=== PATIENT | male | born 1955 | race Caucasian/White ===

== ENCOUNTER 2016-03-13 11:53 | Observation (INO) | payer OTHER ==
[2016-03-13] MEDS ORDERED: Midazolam* 1 MG/ML 10 ML VIAL (10 MG) ONE (13:47)
[2016-03-13] MEDS ORDERED: Meperidine SYRINGE* 50 MG/ML ONE (13:47)
[2016-03-13] MEDS ORDERED: ceFAZolin 1 GM in Dextrose (*) 1 GM/50 ML BAG IVPB ONE (15:00)
[2016-03-13] MEDS ORDERED: Ondansetron INJ* 2 MG/ML VIAL IV PRN (16:40)
[2016-03-13] MEDS: NS 0.9% 1000 ML* 1,000 ML IV SCH (16:59)
[2016-03-13] MEDS ORDERED: CMCS: Varenicline (NF) 1 MG TAB PO SCH (21:00)
[2016-03-13] MEDS: HYDROmorphone INJ* 2 MG/ML CARPUJECT SYRINGE IV PRN (22:26)
[2016-03-14] MEDS: NS 0.9% 1000 ML* 1,000 ML IV SCH (03:21)
[2016-03-14] MEDS: HYDROmorphone INJ* 2 MG/ML CARPUJECT SYRINGE IV PRN (05:14)
[2016-03-14 06:30] LABS: Hematocrit 36 % (42-52); Hemoglobin 12.1 g/dl (14.0-18.0); Mean Corpuscular HGB Conc 34 g/dl (31-36); Mean Corpuscular Hemoglobin 30 pg (27-31); Mean Corpuscular Volume 88 fL (80-94); Mean Platelet Volume 8 um3 (7.4-10.4); Red Blood Count 4.04 10^6/ul (4.0-5.4); Red Cell Distribution Width 13 % (10.5-15)
[2016-03-14] MEDS ORDERED: OMEPRAZOLE 10 MG PO SCH (07:30)
[2016-03-14 08:11] VITALS: BP 132/70
[2016-03-14] MEDS ORDERED: Cyanocobalamin TAB* 500 MCG PO SCH (09:00)
[2016-03-14] MEDS ORDERED: POTASSIUM PO SCH (09:00)
[2016-03-14] MEDS ORDERED: Hydrochlorothiazide TAB* 25 MG PO SCH (09:00)
[2016-03-14] MEDS ORDERED: Ascorbic Acid TAB* 500 MG PO SCH (09:00)
[2016-03-14] MEDS ORDERED: Vitamin E CAP* 400 UNIT PO SCH (09:00)
[2016-03-14] MEDS ORDERED: Multivitamins/Minerals TAB PO SCH (09:00)
[2016-03-14] MEDS ORDERED: Magnesium Oxide TAB* 400 MG PO SCH (09:00)
[2016-03-14] MEDS ORDERED: Lisinopril TAB* 10 MG PO SCH (09:00)
--- NOTE | 2016-03-14 10:03 | PRO ---
DATE OF PROCEDURE: 03/13/16 - ROOM #334 PROCEDURE PERFORMED: EGD with PEG tube placement. REFERRING PHYSICIAN: Dr. Miller; Dr. Capone MEDICATIONS GIVEN: 75 mg IV Demerol, 10 mg IV Versed, and 1 g IV Ancef . DESCRIPTION OF PROCEDURE: After the EGD with PEG tube placement procedure including the risks, benefits, and alternatives not limited to perforation, surgery, and/or were explained to the patient, written consent was then obtained. IV medication was given and a bite-block was placed between the teeth. An Olympus gastroscope was then inserted into the patient's mouth, advanced down the esophagus, into the stomach, into the distal duodenum. No abnormalities were seen. Mucosa of the esophagus, stomach, and duodenum were unremarkable. Scope was then withdrawn into the stomach, insufflation then occurred. I then used my index finger to find a suitable location by palpating his left upper quadrant; good finger indentation did occur. I then cleaned his overlying left upper quadrant skin very well; and then, using 1% lidocaine, anesthetized a location just below his ribs in the left upper quadrant. A trocar needle was then placed through the abdominal wall. I saw it come into the stomach, and then a blue wire was placed through the trocar needle and grasped with the snare from the scope. The scope was then withdrawn from the patient. A PEG tube was then tied on to the end of the blue wire and successfully pulled into place. A repeat endoscopy did confirm successful placement of the PEG tube in the stomach. The scope was then withdrawn, the patient tolerated the procedure well, and was admitted to the hospital per my routine protocol. IMPRESSION: 1. Complete upper endoscopy into the distal duodenum with PEG tube placement. 2. Successful PEG tube placement in the left upper quadrant. 3. The patient will be admitted to the hospital as per my standard routine protocol; if he does well, he can be discharged tomorrow morning. CC: Dr. Miller; Dr. Capone * [id number]/[facility] #: [id number] [facility]
[2016-03-14] MEDS ORDERED: Atorvastatin* 10 MG TAB PO SCH (17:00)
[2016-03-15] MEDS ORDERED: Cholecalciferol TAB* 1000 UNITS PO SCH (09:00)
--- NOTE | 2017-01-06 20:45 | DS ---
DISCHARGE SUMMARY: DATE OF ADMISSION: 03/13/16 DATE OF DISCHARGE: 03/14/16 ADMITTING PHYSICIAN: Dr. Perez. INDICATION FOR ADMISSION: Status post PEG tube. NARRATIVE: The patient is a pleasant 60-year-old gentleman with tonsillar cancer. He underwent a successful PEG tube placement on 03/13/16. He did very well. The next day, he was doing well, denied any pain. He was seen by Dr. Lau who described his abdominal exam as soft with positive bowel sounds. The PEG bumper was at 6 cm and he agreed to discharge the patient to eat regular food. No discharge summary was dictated. DISCHARGE DIAGNOSES: 1. PEG tube placement. 2. Tonsillar cancer. ALLERGIES: None. MEDICATIONS UPON DISCHARGE: Include: 1. Atorvastatin. 2. Chantix. 3. Prilosec. 4. Vitamin D. 5. Vitamin E. 6. Vitamin B12. 7. Vitamin C. He can follow up with me as needed. [id number]/[facility] #: [id number] [facility]
== END 2016-03-14 11:25 | disposition home or self-care (01) ==
LOC: ENDO 11:53 → SSU 17:00
PROVIDERS: ADMIT Internal Medicine Gastroenterology; ATTEND Internal Medicine Gastroenterology
PROC: 0DH63UZ Insertion of Feeding Device into Stomach, Percutaneous Approach (ICD-10-PCS; principal; 2016-03-13)
DX: C09.0 Malignant neoplasm of tonsillar fossa (principal)
CPT/HCPCS: 36415; 77386; 85027; 96374; 96375; 96376; A9270-GY; G0378; J0690; J1170; J2175; J2250; J2405

== ENCOUNTER 2016-08-10 10:06 | Emergency (ER) | payer OTHER ==
[2016-08-10 10:33] VITALS: BP 120/82
--- NOTE | 2016-08-10 11:33 | UC ---
Throat Pain/Nasal Vinny HPI - HPI Summary HPI Summary: 60 y/o male presents to the urgent care c/o of sore throat for the past 5 days. Pt reports he has difficulty swallowing which has been alleviated by taking acetaminophen. His symptoms are also associated with mild cough producing a white phlegm. He denies fever, SOB, chest pain, nasal discharge, N/V/D. 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 - History of Current Complaint Chief Complaint: UCRespiratory Stated Complaint: THROAT COMPLAINT Time Seen by Provider: 08/10/16 11:20 Hx Obtained From: Patient Onset/Duration: Sudden Onset, Lasting Days, Still Present Severity: Moderate Pain Intensity: 4 Pain Scale Used: 0-10 Numeric Cough: Productive - white phlemg Associated Signs & Symptoms: Positive: Dysphagia. Negative: Fever, Vomiting, Rash Related History: Other (Noted In Comments) - Radiation treatment for RT tonsil cancer finished in 04/2016 - Epiglottits Risk Factors Epiglottis Risk Factors: Negative - Allergies/Home Medications Allergies/Adverse Reactions: Allergies Allergy/AdvReac Type Severity Reaction Status Date / Time No Known Allergies Allergy Verified 08/10/16 10:23 Home Medications: Home Medications Acetaminophen TAB* [Tylenol TAB*] 650 mg PO Q4H PRN 08/10/16 [History Confirmed 08/10/16] Ferrous Sulfate TAB* 325 mg PO DAILY 08/10/16 [History Confirmed 08/10/16] Lisinopril TAB* [Prinivil TAB 10 MG*] 10 mg PO DAILY 08/10/16 [History Confirmed 08/10/16] PMH/Surg Hx/FS Hx/Imm Hx Previously Healthy: Yes Cardiovascular History: Hypertension, Other - hyperlipidemia Other Cardiovascular History: hyperlipidemia - Surgical History Surgical History: Yes Surgery Procedure, Year, and Place: APPENDIX 1968. BILATERAL CATARACTS 2012 - Family History Known Family History: Positive: Cardiac Disease, Hypertension - Social History Occupation: Employed Part-time Lives: With Family Alcohol Use: Daily Alcohol Amount: 2-3 drinks a night Substance Use Type: None Smoking Status (MU): Former Smoker Type: Cigarettes Have You Smoked in the Last Year: Yes - Immunization History Most Recent Influenza Vaccination: 2016 Most Recent Tetanus Shot: 10 years ago Most Recent Pneumonia Vaccination: 2016 Review of Systems Constitutional: Negative Skin: Negative Eyes: Negative ENT: Sore Throat Respiratory: Negative Cardiovascular: Negative Gastrointestinal: Negative Genitourinary: Negative Motor: Negative Neurovascular: Negative Musculoskeletal: Negative Neurological: Negative Psychological: Negative All Other Systems Reviewed And Are Negative: Yes Physical Exam Triage Information Reviewed: Yes Appearance: Well-Appearing, No Pain Distress, Well-Nourished, Thin Vital Signs: Initial Vital Signs Temp 98.2 F 08/10/16 10:26 Pulse 71 08/10/16 10:26 Resp 16 08/10/16 10:26 BP 120/82 08/10/16 10:26 Pulse Ox 98 08/10/16 10:26 Vital Signs Reviewed: Yes Eyes: Positive: Conjunctiva Clear - PERRLA, EOMI, fundi grossly normal ENT: Positive: Hearing grossly normal, Pharyngeal erythema - RT side with erythema and creamy white plaques adhered and disperse on RT side of upper palate and RT side of oral mucosa. Pt wears upper dentures. Pt asked to removed dentures which also presented with mild creamy yellwoish white plaques. No cervical lymphadenopathy palpated., TMs normal Neck exam: Normal Neck: Positive: Supple, Nontender, No Lymphadenopathy Respiratory Exam: Normal Respiratory: Positive: Chest non-tender, Lungs clear, Normal breath sounds, No respiratory distress Cardiovascular Exam: Normal Cardiovascular: Positive: RRR, No Murmur, Pulses Normal Abdominal Exam: Normal Abdomen Description: Positive: Nontender, No Organomegaly, Soft Bowel Sounds: Positive: Present Musculoskeletal Exam: Normal Musculoskeletal: Positive: Strength Intact, ROM Intact, No Edema Neurological Exam: Normal Psychological Exam: Normal Skin Exam: Normal Throat Pain/Nasal Course/Dx - Course Course Of Treatment: 60 y/o male presents to the urgent care c/o of sore throat for the past 5 days. Hx obtained. PE abnormal findings:RT side with erythema and creamy white plaques adhered and disperse on RT side of upper palate and RT side of oral mucosa. Pt wears upper dentures. Pt asked to removed dentures which also presented with mild creamy yellwish white plaques. No cervical lymphadenopathy palpated. Rapid test result: negative. Pt with Hx of Tosil CA s/p radiation therapy ended 04/2016. Pt Care and treatment Discussed with Dr Burroughs and agreed to Rx Clotrimazole Oropahryngeal 10mg PO 5X/day x 14 days. Educated in how to clean dentures with brush 3X/day. Strongly Advised o f/u with his PCP in 2-3 days for f/u treatment. If symptoms worsen advised to return to the urgent care or go to the ER as soon as possible. Pt understood and agreed. - Differential Dx/Diagnosis Differential Diagnosis/HQI/PQRI: Laryngitis, Peritonsillar Abscess, Pharyngitis , Tonsillitis, Other - oral candidiasis Provider Diagnoses: Oral candidiasis - Physician Notification/Consults Discussed Patient Care With: Fuentes Burroughs - Dr Burroughs agreed with Pt's care and treatment Discharge - Discharge Plan Condition: Stable Disposition: HOME Prescriptions: Clotrimazole ERIKA* [Mycelex Erika*] 10 mg MT SEE INSTRUCTIONS #70 erika Patient Education Materials: Oral Candidiasis (ED) Referrals: Marlee Hernandez PA [Primary Care Provider] - 1 Week Additional Instructions: Please take medication as directed. Wash your dentures well with paste before using them. Please f/u with your PCP in 1 week for further evaluation and treatment.
== END 2016-08-10 11:54 | disposition home or self-care (01) ==
LOC: UCCORT 10:06
DX: B37.0 Candidal stomatitis (principal); Z85.89 Personal history of malignant neoplasm of other organs and systems; Z92.3 Personal history of irradiation; I10 Essential (primary) hypertension; E78.5 Hyperlipidemia, unspecified; Z87.891 Personal history of nicotine dependence
CPT/HCPCS: 87651; 99211; G0463

== ENCOUNTER 2017-04-25 09:40 | Observation (INO) | payer OTHER ==
[~2017-04-25 09:40] MED LIST: Buffered Lidocaine 0.9% SYRIN* 5 ML/SYR SYRINGE INTRADERM ONE; DiMENhydriNATE IV* 50 MG/ML VIAL IV PUSH PRN; Famotidine IV* 10 MG/ML 2 ML (20 mg) IV ONE; Morphine INJ* 2 MG/ML 1 ML CARPUJECT IV PRN; Naloxone* 0.4 MG/ML 1 ML VIAL IV PRN; PROCHLORPERAZINE INJ 5 MG/ML 2 ML VIAL IV PRN; fentaNYL* 50 MCG/ML 2 ML VIAL (100 MCG VIAL) IV PRN
[2017-04-25] MEDS ORDERED: ceFAZolin 2 GM in 100 MLS NS (*) BAG IVPB ONE (09:42)
[2017-04-25] MEDS ORDERED: Famotidine IV* 10 MG/ML 2 ML (20 mg) ONE (09:42)
[2017-04-25] MEDS ORDERED: Buffered Lidocaine 0.9% SYRIN* 5 ML/SYR SYRINGE ONE (09:42)
[2017-04-25] MEDS ORDERED: Lidocain 1% EPI 1:100,000 * 30 ML MDV ONE (11:22)
[2017-04-25] MEDS ORDERED: fentaNYL* 50 MCG/ML 5 ML VIAL (250 MCG VIAL) ONE (11:32)
[2017-04-25] MEDS ORDERED: Midazolam* 1 MG/ML 5 ML VIAL (5 MG) ONE (11:32)
[2017-04-25] MEDS ORDERED: Ondansetron INJ* 2 MG/ML VIAL ONE (11:59)
[2017-04-25] MEDS ORDERED: Succinylcholine* 20 MG/ML 10 ML VIAL ONE (11:59)
[2017-04-25] MEDS ORDERED: Propofol* 10 MG/ML 20 ML BTL IV PUSH ONE (11:59)
[2017-04-25] MEDS ORDERED: Dexamethasone IV* 4 MG/ML 1 ML (4 MG) ONE (11:59)
[2017-04-25] MEDS ORDERED: Morphine INJ* 10 MG/ML 1 ML CARPUJECT ONE (12:29)
[2017-04-25] MEDS ORDERED: Bacitracin OINTMENT* 0.5% 0.5 oz TUBE ONE (14:06)
[2017-04-25] MEDS ORDERED: Labetalol IV* 5 MG/ML 20 ML VIAL ONE (14:23)
[2017-04-25] MEDS ORDERED: fentaNYL* 50 MCG/ML 2 ML VIAL (100 MCG VIAL) ONE (15:38)
[2017-04-25] MEDS ORDERED: Acetaminophen TAB* 325 MG PO PRN (16:04)
[2017-04-25] MEDS ORDERED: Ondansetron INJ* 2 MG/ML VIAL IV PRN ×2 (16:08→16:35)
[2017-04-25] MEDS ORDERED: Morphine INJ* 2 MG/ML 1 ML CARPUJECT IV PRN ×2 (16:08→16:39)
[2017-04-25] MEDS ORDERED: Morphine INJ* 2 MG/ML 1 ML CARPUJECT ONE (16:34)
[2017-04-25] MEDS ORDERED: Ibuprofen TAB* 800 MG PO PRN (16:34)
[2017-04-25] MEDS ORDERED: Ondansetron INJ* 2 MG/ML VIAL IM PRN (16:35)
[2017-04-25] MEDS ORDERED: HYDROcodone/ACETAMIN 5-325 MG* 1 TAB PO PRN (16:35)
[2017-04-25] MEDS ORDERED: Ondansetron TAB* 4 MG PO PRN (16:36)
[2017-04-25] MEDS: Polyethylene Glycol 3350* 17 GM PACKET PO SCH (18:08)
[2017-04-25] MEDS: VARENICLINE 1 MG PO SCH (19:40)
--- NOTE | 2017-04-25 21:54 | CONS ---
MEDICAL CONSULTATION: DATE OF CONSULT: 04/25/17 REFERRING PHYSICIAN: Dr. Henri Powell. MY ATTENDING FOR TODAY: Dr. Siddhartha Georges. CHIEF COMPLAINT: History of squamous cell cancer of the tonsil. HISTORY OF PRESENT ILLNESS: This is a very pleasant 61-year-old male patient who had a history of sq uamous cell carcinoma. Patient had undergone radiation therapy that was completed 04/14/16. Essenti esequiely, patient had had a clear prognosis that his cancer had been eradicated; however, he presented th with a palpable mass in the left neck. Fine needle aspiration showed squamous cell carcinoma cons istent with his previous diagnosis that had been completed in 2016. Patient presented today with Dr. Powell for radical neck resection of the neck mass. He has undergone that procedure today. He was seen out of the PACU and in his room. He is up in his bed, awake and alert. is at bedside. He is in no acute distress. He is complaining of some left-sided neck pain, but denies any difficu lty swallowing. He is controlling his secretions. There was no shortness of breath. No chest pain. No nausea, no vomiting. No abdominal pain. No complain of fever or chills. No headache or dizzin ess. He has not been ambulatory or out of the bed yet. However, he states essentially he feels a li ttle groggy from anesthesia with no further constitutional complaints. 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 MEDICATIONS AT HOME: Include: 1. Vitamin E 400 units every other day. 2. Chantix 1 mg 2 times a day. 3. Potassium supplement 99 mg every other day. 4. Omeprazole 10 mg in the morning. 5. Multivitamin 1 tablet daily. 6. Mag-Ox 400 mg every other day. 7. Lisinopril 10 mg daily. 8. Ferrous sulfate 325 mg daily. 9. Vitamin B12 500 mcg daily. 10. Vitamin D 1000 units every other day. 11. Atorvastatin 10 mg daily. 12. Vitamin C 500 mg daily. 13. Tylenol 650 mg as needed. ALLERGIES: Patient has no known drug allergies. FAMILY HISTORY: Noncontributory. SOCIAL HISTORY: Patient has a 45-pack year history of smoking. He quit approximately 1 year ago and then restarted, quit again in February and has been taking Chantix ever since. Patient denies any al cohol use on regular basis, is rare and infrequent. Denies any illicit drug use. Patient is retired . Lives at home with his . REVIEW OF SYSTEMS: A 10-point review of systems is negative except as noted in the HPI. PHYSICAL EXAM: Patient is alert, well appearing. Vital Signs: Currently, blood pressure 118/70, he art rate 69, respiratory rate 16, oxygen saturation 98% on room air. Temperature is 97.7. Pain is a pproximately 6/10. HEENT: Patient is atraumatic, normocephalic. PERRLA with nonicteric sclerae. N dony is tender. He has a large approximated staple wound line from the back of the ear across the lat eral portion of the left neck and down towards the sternal notch. There is some exudate noted in the superior portion of the wound. He has got 2 drains, one again at the back of the ear and the other one in the left anterior chest, seems to be high output in the left anterior chest drain. Very scant y output in the more superior drain. Cardiovascular: S1, S2 are present. Rate and rhythm are regul ar. No murmurs, gallops, or rubs. Lungs are clear bilaterally to auscultation with no wheezing, rhon chi, or rales. Abdomen is soft, mildly protuberant, nontender. No organomegaly appreciated. He has hypoactive bowel sounds in all 4 quadrants. is deferred. Musculoskeletal: There is no clubbing , no cyanosis, and no edema. He has +2 distal pulses palpable. Gross motor and sensation are intact. Neurologic is grossly intact. There is no focal deficit. Psychiatric: He is cooperative and appro priate. DIAGNOSTIC STUDIES/LAB DATA: Preoperative labs showed WBC is 4.6, RBC is 4.04, hemoglobin 13.2, cat tocrit 38, platelets 241. Sodium 137, potassium 4.4, chloride 105, CO2 26, BUN 15, creatinine 0.84, GFR is 92.3. Glucose is 129, calcium 9.2, bilirubin 0.10, AST 19, ALT 12, alk phos 65, total protein 6, albumin 4.2. IMAGING: There is no current imaging for this admission for today. IMPRESSION: This is a 61-year-old male patient with history of squamous cell carcinoma who has now b een admitted for radical neck resection for excision of left tonsil for said carcinoma. PLAN: The patient has been admitted to medical service; however, primary plan to care will be as per ENT. I have ordered morphine 2 mg q.2 hours as needed, Zofran 4 mg IV q.6 hours as needed. We will hold on his home supplements. For now, continue his lisinopril for his blood pressure. Follow H an d H in the morning and a BMP to check his hemoglobin and his renal function in the morning. He can h ave a regular or soft diet as tolerated. Patient is not describing any difficulty swallowing at this time, however, that will be continued to be monitored. Also monitoring his drain output very closel y considering it seems to have some high output right now. The rest of the patient's course will be determined by further diagnostics, laboratories and any other input from other providers as warranted during this admission. We thank you very kindly for the courtesy of this consult and agreed to follow the patient along with you. BONIFACIO WILEY, YON [id number]/[facility] #: [id number]
[2017-04-26] MEDS: HYDROcodone/ACETAMIN 5-325 MG* 1 TAB PO PRN ×3 (01:38→09:53)
[2017-04-26 05:45] LABS: Hematocrit 34 % (42-52)
[2017-04-26 06:03] LABS: EGFR Non-African American 126.3 (>60)
[2017-04-26] MEDS: Polyethylene Glycol 3350* 17 GM PACKET PO SCH (07:34)
[2017-04-26] MEDS ORDERED: POTASSIUM 99 MG PO SCH (09:00)
[2017-04-26] MEDS ORDERED: Ferrous Sulfate TAB* 325 MG PO SCH (09:00)
[2017-04-26] MEDS ORDERED: Atorvastatin* 10 MG TAB PO SCH (09:00)
[2017-04-26] MEDS ORDERED: Vitamin E CAP* 400 UNIT PO SCH (09:00)
[2017-04-26] MEDS ORDERED: Multivitamins/Minerals TAB PO SCH (09:00)
[2017-04-26] MEDS ORDERED: Lisinopril TAB* 10 MG PO SCH (09:00)
[2017-04-26] MEDS ORDERED: Ascorbic Acid TAB* 500 MG PO SCH (09:00)
[2017-04-26] MEDS ORDERED: Omeprazole CAP(NF) 10 MG CAP PO SCH (09:00)
[2017-04-26] MEDS ORDERED: Cyanocobalamin TAB* 500 MCG PO SCH (09:00)
[2017-04-26] MEDS ORDERED: Magnesium Oxide TAB* 400 MG PO SCH (09:00)
[2017-04-26] MEDS ORDERED: Cholecalciferol TAB* 1000 UNITS PO SCH (09:00)
[2017-04-26] MEDS: VARENICLINE 1 MG PO SCH (09:12)
[2017-04-26 09:22] VITALS: BP 124/85
--- NOTE | 2017-04-26 10:55 | PN ---
Subjective Date of Service: 04/26/17 Interval History: Patient seen and examined at bedside. Denies fever, chills, shortness of breath , chest discomfort, N/V/D. Pt states that his pain is controlled. He is comfortable with managing the AAKASH drains at home. Family History: Unchanged from Admission Social History: Unchanged from Admission Past Medical History: Unchanged from Admission Objective Active Medications: Acetaminophen (Tylenol Tab*) 650 mg PO Q4H PRN Reason: PAIN Hydrocodone Bitart/Acetaminophen ([place] 5-325 Tab*) 1 tab PO Q4H PRN Reason: PAIN Hydrocodone Bitart/Acetaminophen ([place] 5-325 Tab*) 2 tab PO Q4H PRN Reason: PAIN - SEVERE Ascorbic Acid (Vitamin C Tab*) 500 mg PO DAILY [facility] Atorvastatin Calcium (Lipitor*) 10 mg PO QAM [facility] Cholecalciferol (Vitamin D Tab*) 1,000 units PO Q48H [facility] Cyanocobalamin (Vitamin B12 Tab*) 500 mcg PO DAILY [facility] Ferrous Sulfate (Ferrous Sulfate Tab*) 325 mg PO QAM [facility] Lactated Ringer's (Lactated Ringers 1000 Ml Bag*) 1,000 mls @ 100 mls/hr IV PER RATE [facility] Ibuprofen (Motrin Tab*) 800 mg PO Q8H PRN Reason: PAIN Lisinopril (Prinivil Tab*) 10 mg PO QAM [facility] Magnesium Oxide (Magox 400 Tab*) 400 mg PO Q48H [facility] Morphine Sulfate (Morphine Inj (Syringe)*) 2 mg IV Q2H PRN Reason: PAIN - MILD Multivitamins/Minerals (Theragran/Minerals Tab*) 1 tab PO DAILY [facility] Non Formulary Med* (Potassium 99mg) 1 admin PO Q48H [facility] Omeprazole (Prilosec Cap(Nf)) 10 mg PO DAILY [facility] Ondansetron HCl (Zofran Inj*) 8 mg IV Q6H PRN Reason: NAUSEA/VOMITING Ondansetron HCl (Zofran Inj*) 8 mg IM Q6H PRN Reason: NAUSEA/VOMITING Ondansetron HCl (Zofran Tab*) 8 mg PO Q6H PRN Reason: NAUSEA/VOMITING Polyethylene Glycol/Electrolytes (Miralax*) 17 gm PO DAILY [facility] Varenicline (Chantix (Nf)) 1 mg PO BID [facility] Vitamin E (Vitamin E Cap*) 400 unit PO Q48H [facility] Vital Signs - 8 hr 04/26/17 04/26/17 04/26/17 03:29 05:30 05:33 Temperature 98.3 F Pulse Rate 54 Respiratory 16 16 18 Rate Blood Pressure 119/39 (mmHg) O2 Sat by Pulse 97 Oximetry 04/26/17 04/26/17 04/26/17 07:54 08:00 09:53 Temperature 98.1 F Pulse Rate 67 Respiratory 16 16 16 Rate Blood Pressure 124/85 (mmHg) O2 Sat by Pulse 99 Oximetry 04/26/17 09:54 Temperature Pulse Rate Respiratory 16 Rate Blood Pressure (mmHg) O2 Sat by Pulse Oximetry Oxygen Devices in Use Now: None Appearance: NAD, standing in room Ears/Nose/Mouth/Throat: Mucous Membranes Moist Neck: - - Incision to left anterior neck well approximated with karla intact Respiratory: Symmetrical Chest Expansion and Respiratory Effort, Clear to Auscultation Cardiovascular: NL Sounds; No Murmurs; No JVD, RRR Abdominal: NL Sounds; No Tenderness; No Distention Extremities: No Edema Skin: No Rash or Ulcers Neurological: Alert and Oriented x 3, NL Muscle Strength and Tone Lines/Tubes/Other Access: Clean, Dry and Intact Peripheral IV - site benign, Clean, Dry and Intact Other Access - AAKASH drain x2, serosang drainage Nutrition: Taking PO's Result Diagrams: 04/26/17 05:35 04/26/17 05:35 Assess/Plan/Problems-Billing Assessment: Mr. Katz is a 61 yo male with PMH significant for HTN, HLD, GERD, and left tonsilar CA who presented to the hospital for a radical neck dissection by Dr. Powell. - Patient Problems (1) Status post radical dissection of neck Code(s): Z98.890 - OTHER SPECIFIED POSTPROCEDURAL STATES SNOMED Code(s): 746581844 Comment: - POD #1 - Management per ENT (2) Tonsillar cancer Comment: - S/P radical neck dissection (3) HTN (hypertension) Code(s): I10 - ESSENTIAL (PRIMARY) HYPERTENSION SNOMED Code(s): 02577053 Comment: - SBP 110-130's - Continue lisinopril (4) HLD (hyperlipidemia) Code(s): E78.5 - HYPERLIPIDEMIA, UNSPECIFIED SNOMED Code(s): 13121501 (5) GERD (gastroesophageal reflux disease) Code(s): K21.9 - GASTRO-ESOPHAGEAL REFLUX DISEASE WITHOUT ESOPHAGITIS SNOMED Code(s): 321373723 Comment: - Continue omeprazole (6) DVT prophylaxis Code(s): QZR4166 - SNOMED Code(s): 851692329 (7) Full code status Code(s): Z78.9 - OTHER SPECIFIED HEALTH STATUS SNOMED Code(s): 861826750 Status and Disposition: Inpatient. Stable for discharge to home today.
--- NOTE | 2017-04-26 12:01 | OP ---
OPERATIVE REPORT: DATE OF OPERATION: 04/25/17 DATE OF : 51 SURGEON: Henri Powell MD NAIL ARTIST: Dr. Lux. PRE-OP DIAGNOSIS: Malignant neoplasm left neck, metastatic. POST-OP DIAGNOSIS: Malignant neoplasm left neck, metastatic. OPERATIVE PROCEDURE: Left radical neck dissection under general endotracheal anesthesia. COMPLICATIONS: None. DISPOSITION: Good. SPECIMEN: Left neck dissection. BLOOD LOSS: 20 mL. DESCRIPTION OF PROCEDURE: The patient was taken to the operating room, placed in the supine position on the operating table. General anesthesia was induced and he was orotracheally intubated. His hea d was positioned for this surgery and incision was demarcated from the mastoid tip inferiorly to cros s midline at the cricoid cartilage and then this was injected with 1% lidocaine with 1:100,000 epinep hrine. He was prepped with Betadine, draped in a sterile fashion. An incision was made with a 10 bret de to the skin and platysma muscle and inferior and superior subplatysmal planes were raised. The fa scia over the submandibular gland was elevated off the gland to lift up the marginal mandibular nerve . The submandibular gland was left in place for this dissection. The dissection was taken down to t he digastric muscle and this was traced along its course. The superior attachments of the sternoclei domastoid muscle were released and releasing that muscle from the mastoid tip and superior attachment s, the skin was reflected off this. It became apparent that the tumor was infiltrating into the ster nocleidomastoid muscle and the spinal accessory nerve and the internal jugular vein in the level 2 ly mph nodes and so, all of those structures were removed. The attachments of the inferior muscl e were released off the clavicle. The internal jugular vein was found just inferior to the omohyoid muscle. The omohyoid muscle was cut and reflected into the specimen laterally and then the inferior jugular vein was isolated, tied with 0 ties, suture ligatured with 2-0 silk sutures, cut and the supe rior portion was left into the specimen. The dissection was taken off the lateral larynx. The omohy oid muscle was released and was taken up superiorly to where we had made the dissection to find the d igastric muscle. The dissection was taken off the vagus nerve, the internal carotid artery. Inferio rly, the deep cervical fascia was found, Mcguire tunnels were developed and the lower lymph nodes and were cross-clamped and cut and the portion of the neck of was suture ligated. The lateral spinal accessory nerve was cut. The floor of the neck was found and the dissection was e levated up to come around and isolate the cancer. It was found that this was infiltrating through th e deep cervical fascia into the deep cervical musculature, some of which were taken off to reflect th e cancer out of the neck. As we came around posteriorly, we came back to the jugular vein. The hypog lossal nerve was found and traced in its entirety and preserved. The neck dissection was taken off t he carotid bulb. The external carotid and internal carotid reflected laterally until we were tethere d superiorly by the internal jugular vein. The cancer was coming right up to skull base at this area . We put 0 ties around the internal jugular vein, then suture ligated with 2-0 silk suture and then cut the vein and took the neck dissection out of the patient's neck. The wound was irrigated with co pious saline, 2 #10 JPs were placed and sutured in place. The neck was closed with 3-0 deep dermal V icryls and stapled and then some antibiotic ointment was placed over the incision. The patient martin ated this well, no complications, extubated uneventfully and transferred to recovery room in stable c ondition. [id number]/[facility] #: [id number]
--- NOTE | 2017-04-27 15:03 | DS ---
CC: Dr. Powell; JEREMI Powers DISCHARGE SUMMARY: DATE OF ADMISSION: 04/25/17 DATE OF DISCHARGE: 04/26/17 ATTENDING PHYSICIAN: Sheron Pabon MD (dictated by Yanick Franklin NP). PRIMARY CARE PROVIDER: JEREMI Powers. PRIMARY DIAGNOSIS: Malignant neoplasm of the left neck, status post left radical neck dissection. SECONDARY DIAGNOSES: 1. Hypertension. 2. Hyperlipidemia. 3. Gastroesophageal reflux disease. 4. History of left tonsillar cancer. PROCEDURES WHILE IN THE HOSPITAL: Status post left radical neck dissection under general anesthesia for malignant neoplasm of the left neck by Dr. Powell. HOME MEDICATIONS: New home medication: Ibuprofen 600 mg oral every 6 hours as needed for pain. Continued medications: 1. Atorvastatin 10 mg oral every morning. 2. Vitamin D 1000 units oral every other day. 3. Vitamin E 400 units oral every other day. 4. Magnesium 400 mg oral every other day. 5. Vitamin B12, 500 mcg oral every morning. 6. Vitamin C 500 mg oral every morning. 7. Multivitamin 1 tablet oral every morning. 8. Ferrous sulfate 325 mg oral every morning. 9. Lisinopril 10 mg oral every morning. 10. Acetaminophen 650 mg oral every 4 hours as needed for pain. 11. Chantix 1 mg oral twice daily. 12. Potassium 99 mg oral every other day. 13. Omeprazole 10 mg oral every morning. HISTORY OF PRESENT ILLNESS/HOSPITAL COURSE: Mr. Katz is a 61-year-old male with a past medical hi story significant for hypertension, hyperlipidemia, GERD and left tonsillar carcinoma, who has underg one radiation therapy that was completed on 04/14/17. The patient had been reported to have a clear prognosis and that his cancer had been eradicated; however, he presented with a palpable mass in his left neck. 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 The patient presented to the hospital for an elective radical neck dissection with Dr. Powell. While in the hospital, the hospitalists were asked to assist with co-medical management of this patie nt. He is doing well with no complaints. He has AAKASH drains intact. His pain is controlled. He has no difficulty breathing. He is stable for discharge today. Mr. Katz is stable for discharge to home today. Vital signs are as follows: Temperature 98.1, hea rt rate 67, respiratory rate 16, O2 sat 99% on room air, blood pressure 124/85. DISCHARGE PLAN: Mr. Katz will be discharged to home. Activity as tolerated, but light activity. He will be on a regular diet. He will need to call Dr. Powell's office for an appointment mira campuzano on 04/27/17, to have his AAKASH drains removed. He will be instructed by the nursing on how to care for his JPs, take Tylenol and Motrin as needed for his pain. He has been asked to apply anti biotic ointment to his incision twice daily and that he can shower on Sunday. He is resumed on his other usual home medications. He has been asked to return to the emergency room for any chest pain, shortness of breath. This is a summarized report of a complex medical history and hospital stay. For further details, ple ase see the entire medical record. TIME SPENT: Time for this discharge was approximately 50 minutes, greater than half of that was spen t with the patient and his family discussing discharge plans and instructions. CONDITION ON DISCHARGE: Stable. YANICK FRANKLIN, YON [id number]/[facility] #: [id number]
== END 2017-04-26 12:05 | disposition home or self-care (01) ==
LOC: OR 09:40 → INTOOBSV 16:03 → SSU 16:03
PROVIDERS: ADMIT Internal Medicine; ATTEND Otolaryngology
DX: C76.0 Malignant neoplasm of head, face and neck (principal); Z98.890 Other specified postprocedural states; I10 Essential (primary) hypertension; E78.5 Hyperlipidemia, unspecified; K21.9 Gastro-esophageal reflux disease without esophagitis; Z85.818 Personal history of malignant neoplasm of other sites of lip, oral cavity, and pharynx
CPT/HCPCS: 36415; 80048; 85014; 85018; 86850; 86900; 86901; 88307; 94760; A9270-GY; G0378; J0330; J1100; J2250; J2270; J2405; J2704; J3010

== ENCOUNTER 2020-05-07 12:24 | Inpatient (IN) ==
[2020-05-07 12:56] LABS: ABS Lymphocytes 0.2 10^3/ul (1.0-4.8); ABS Monocytes 0.1 10^3/ul (0-0.8); ABS Neutrophils 0.4 10^3/ul (1.5-7.7); Hematocrit 31 % (42-52); Hemoglobin 10.7 g/dL (14.0-18.0); Lymphocyte % 25.3 %; Mean Corpuscular HGB Conc 34 g/dL (31-36); Mean Corpuscular Hemoglobin 31 pg (27-31); Mean Corpuscular Volume 91 fL (80-94); Mean Platelet Volume 7.6 fL (7.4-10.4); Platelet Count 306 10^3/uL (150-450); Red Blood Count 3.43 10^6 /uL (4.18-5.48); Red Cell Distribution Width 16 % (10-15); White Blood Count 0.8 10^3/uL (3.5-10.8)
[2020-05-07 12:59] LABS: Nucleated Red Blood Cells % 0.2
[2020-05-07 13:08] LABS: Albumin 3.7 g/dL (3.2-5.2); Albumin/Globulin Ratio 1.5 (1-3); BUN/Creatinine Ratio 21.6 (8-20); Calcium 9.3 mg/dL (8.6-10.3); EGFR African American 104.8 (>60); EGFR Non-African American 86.6 (>60); Globulin 2.5 g/dL (2-4); Potassium 3.7 mmol/L (3.5-5.0); Total Bilirubin 0.6 mg/dL (0.2-1.0); Total Protein 6.2 g/dL (6.4-8.9)
[2020-05-07] MEDS ORDERED: Ondansetron 4 mg VIAL 2 MG/ML 2 ml VIAL IV PRN (14:39)
[2020-05-07] MEDS ORDERED: Diphenoxylat/Atrop 2.5-0.025mg TAB PO PRN (14:46)
[2020-05-07] MEDS ORDERED: Fluticasone NASAL SPRAY 50MCG 16 gm SPRAY BTL INTRANASAL PRN (14:46)
[2020-05-07] MEDS ORDERED: Vancomycin per Pharmacy 1 EA NOTE FOLLOW UP SCH (15:00)
[2020-05-07] MEDS ORDERED: Vancomycin 1,250 MG in NS 0.9% 250 ml 250 ML IVPB ONE (15:30)
[2020-05-07] MEDS: Collagenase 250 units/gm OINT 1 tube TOPICAL SCH (18:03)
[2020-05-07] MEDS: Latanoprost 0.005% 2.5 ml BTL BOTH EYES SCH (18:04)
[2020-05-07] MEDS: Enoxaparin 40 MG/0.4 ML SYR SUBCUT SCH (21:35)
[2020-05-08] MEDS: NS 0.9% 1000 ml BAG 1,000 ML IV SCH ×2 (00:35→21:42)
[2020-05-08 05:27] LABS: ABS Lymphocytes 0.2 10^3/ul (1.0-4.8); ABS Monocytes 0.2 10^3/ul (0-0.8); ABS Neutrophils 0.3 10^3/ul (1.5-7.7); Eosinophil % 0.7 %; Hematocrit 29 % (42-52); Hemoglobin 9.7 g/dL (14.0-18.0); Lymphocyte % 34.7 %; Mean Corpuscular HGB Conc 33 g/dL (31-36); Mean Corpuscular Hemoglobin 30 pg (27-31); Mean Corpuscular Volume 91 fL (80-94); Mean Platelet Volume 7.6 fL (7.4-10.4); Nucleated Red Blood Cells % 0.1; Platelet Count 271 10^3/uL (150-450); Red Cell Distribution Width 15 % (10-15); White Blood Count 0.7 10^3/uL (3.5-10.8)
[2020-05-08 05:28] LABS: Albumin 3.3 g/dL (3.2-5.2); Albumin/Globulin Ratio 1.5 (1-3); BUN/Creatinine Ratio 23.3 (8-20); Calcium 8.5 mg/dL (8.6-10.3); EGFR African American 163.1 (>60); EGFR Non-African American 134.8 (>60); Globulin 2.2 g/dL (2-4); Potassium 3.6 mmol/L (3.5-5.0); Total Bilirubin 0.4 mg/dL (0.2-1.0); Total Protein 5.5 g/dL (6.4-8.9)
[2020-05-08] MEDS: Vancomycin 1000 MG in NS 0.9% 250 ML IVPB SCH ×2 (05:53→17:51)
[2020-05-08] MEDS: Collagenase 250 units/gm OINT 1 tube TOPICAL SCH (08:14)
[2020-05-08] MEDS: Psyllium PAK PO SCH (09:21)
[2020-05-08] MEDS: Latanoprost 0.005% 2.5 ml BTL BOTH EYES SCH (09:22)
[2020-05-08] MEDS: Enoxaparin 40 MG/0.4 ML SYR SUBCUT SCH (21:38)
[2020-05-09] MEDS ORDERED: Vancomycin Trough Check NOTE FOLLOW UP ONE (06:00)
[2020-05-09 06:17] LABS: Calcium 8.8 mg/dL (8.6-10.3); EGFR African American 201.3 (>60); EGFR Non-African American 166.4 (>60); Potassium 3.5 mmol/L (3.5-5.0)
[2020-05-09 06:19] LABS: Vancomycin Trough 10.7 mcg/mL
[2020-05-09 06:38] LABS: ABS Lymphocytes 0.2 10^3/ul (1.0-4.8); ABS Monocytes 0.2 10^3/ul (0-0.8); Eosinophil % 0.9 %; Hematocrit 29 % (42-52); Hemoglobin 9.8 g/dL (14.0-18.0); Lymphocyte % 30.9 %; Mean Corpuscular HGB Conc 34 g/dL (31-36); Mean Corpuscular Hemoglobin 31 pg (27-31); Mean Corpuscular Volume 89 fL (80-94); Mean Platelet Volume 7.3 fL (7.4-10.4); Nucleated Red Blood Cells % 0.8; Platelet Count 259 10^3/uL (150-450); Red Blood Count 3.22 10^6 /uL (4.18-5.48); Red Cell Distribution Width 15 % (10-15); White Blood Count 0.6 10^3/uL (3.5-10.8)
[2020-05-09] MEDS: Vancomycin 1000 MG in NS 0.9% 250 ML IVPB SCH ×2 (06:41→18:29)
[2020-05-09 06:48] LABS: ABS Neutrophils 0.2 10^3/ul (1.5-7.7)
[2020-05-09] MEDS: Latanoprost 0.005% 2.5 ml BTL BOTH EYES SCH (08:03)
[2020-05-09] MEDS: Psyllium PAK PO SCH (08:04)
[2020-05-09] MEDS: Collagenase 250 units/gm OINT 1 tube TOPICAL SCH (08:06)
[2020-05-09 09:42] LABS: Magnesium 1.6 mg/dL (1.9-2.7)
[2020-05-09] MEDS ORDERED: Magnesium Sulfate 2 gm BAG 2 GM/50 ML BAG IVPB ONE (10:05)
[2020-05-09] MEDS: Enoxaparin 40 MG/0.4 ML SYR SUBCUT SCH (22:42)
[2020-05-10] MEDS: HYDROcodone/ACET. 7.5/325 LIQ 15 ML UDC PO PRN ×2 (02:25→07:41)
[2020-05-10 06:09] LABS: Hematocrit 29 % (42-52); Mean Corpuscular HGB Conc 35 g/dL (31-36); Mean Corpuscular Hemoglobin 31 pg (27-31); Mean Corpuscular Volume 89 fL (80-94); Mean Platelet Volume 7.1 fL (7.4-10.4); Platelet Count 306 10^3/uL (150-450); Red Blood Count 3.26 10^6 /uL (4.18-5.48); Red Cell Distribution Width 15 % (10-15); White Blood Count 0.9 10^3/uL (3.5-10.8)
[2020-05-10] MEDS: Vancomycin 1000 MG in NS 0.9% 250 ML IVPB SCH (06:19)
[2020-05-10 06:29] LABS: ABS Lymphocytes 0.2 10^3/ul (1.0-4.8); ABS Monocytes 0.3 10^3/ul (0-0.8); Eosinophil % 0.5 %; Lymphocyte % 26.8 %; Nucleated Red Blood Cells % 0.1
[2020-05-10 06:35] LABS: ABS Neutrophils 0.3 10^3/ul (1.5-7.7)
[2020-05-10 06:58] LABS: Magnesium 1.7 mg/dL (1.9-2.7); Potassium 3.1 mmol/L (3.5-5.0)
[2020-05-10 07:03] LABS: BUN/Creatinine Ratio 8.1 (8-20); EGFR Non-African American 129.8 (>60)
[2020-05-10] MEDS: Collagenase 250 units/gm OINT 1 tube TOPICAL SCH (07:46)
[2020-05-10] MEDS: Latanoprost 0.005% 2.5 ml BTL BOTH EYES SCH (07:49)
[2020-05-10] MEDS: Psyllium PAK PO SCH (08:30)
[2020-05-10] MEDS ORDERED: cefTRIAXone 2 GM ADDV.VIAL 2 GM in NS 0.9% 100 ml BAG 100 ML IV SCH (13:00)
[2020-05-10 13:44] LABS: C Reactive Protein 33.31 mg/L (<8.01)
[2020-05-10] MEDS ORDERED: Gadoteridol (CONTRAST) 279.3 MG/ML 10 ML IV ONE (15:40)
[2020-05-10 16:09] VITALS: BP 147/96
[2020-05-12] MEDS ORDERED: Vancomycin Trough Check NOTE FOLLOW UP ONE (06:00)
== END 2020-05-10 17:00 | disposition left against medical advice (07) | DRG 158 ==
LOC: CHOA 12:24 → SSU 14:39
PROVIDERS: ADMIT Internal Medicine Hematology & Oncology; ATTEND Internal Medicine Hematology & Oncology